=== PATIENT | male | born 1985 | race Caucasian/White ===

== ENCOUNTER 2017-06-23 15:29 | Inpatient (IN) | payer OTHER ==
[2017-06-23 16:50] VITALS: BMI 29.2
--- NOTE | 2017-06-23 20:42 | HP ---
COWS - Scale Resting Pulse: 1= [place] 81-100 Sweatin=Flushed/Facial Moisture Restless Observation: 3= Extraneous Movement Pupil Size: 0= Normal to Room Light Bone or Joint Aches: 2= Severe Diffuse Aches Runny Nose/ Eye Tearin= Runny Nose/Eyes GI Upset > 30mins: 1= Stomach Cramp Tremor Observation: 2= Slight Tremor Visible Yawning Observation: 1= 1-2x During Session Anxiety or Irritability: 4=Extreme Anxiety Goose Flesh Skin: 0=Smooth Skin COWS Score: 18 Admission ROS S - HPI Chief Complaint: Opiod withdrawal sx Allergies/Adverse Reactions: Allergies Allergy/AdvReac Type Severity Reaction Status Date / Time Fish Containing Products Allergy Severe Swelling Verified 06/23/17 21:46 No Known Drug Allergies Allergy Verified 06/23/17 21:46 NKDA Allergy Uncoded 06/23/17 21:46 History of Present Illness: 31 years old male with hx of opioid dependence is admitted for detox. Patient has been in previous detox and reports opoid withdrawal sx at this time and 18 months sobriety Exam Limitations: No Limitations - Ebola screening Have you traveled outside of the country in the last 21 days: No Have you had contact with anyone from an Ebola affected area: No Have you been sick,other than usual withdrawal symptoms: No Do you have a fever: No - Review of Systems Constitutional: Chills, Night Sweats, Changes in sleep EENT: reports: No Symptoms Reported Respiratory: reports: No Symptoms reported Cardiac: reports: No Symptoms Reported GI: reports: No Symptoms Reported : reports: No Symptoms Reported Musculoskeletal: reports: Muscle Pain, Muscle Weakness Integumentary: reports: Flushing, Sweating Neuro: reports: Headache, Tingling, Tremors Endocrine: reports: Flushing Hematology: reports: No Symptoms Reported Psychiatric: reports: Orientated x3, Anxious Other Systems: Reviewed and Negative Patient History - Patient Medical History Hx Anemia: No Hx Asthma: No Hx Chronic Obstructive Pulmonary Disease (COPD): No Hx Cancer: No Hx Cardiac Disorders: No Hx Congestive Heart Failure: No Hx Hypertension: No Hx Hypercholesterolemia: No Hx Pacemaker: No HX Cerebrovascular Accident: No Hx Seizures: No Hx Dementia: No Hx Diabetes: No Hx Gastrointestinal Disorders: No Hx Liver Disease: No Hx Genitourinary Disorders: No Hx Sexually Transmitted Disorders: No Hx Renal Disease (ESRD): No Hx Thyroid Disease: No Hx Human Immunodeficiency Virus (HIV): No (Negative March 2017) Hx Hepatitis C: No Hx Depression: No Hx Suicide Attempt: No Hx Bipolar Disorder: No Hx Schizophrenia: No - Patient Surgical History Past Surgical History: No Hx Neurologic Surgery: No Hx Cataract Extraction: No Hx Cardiac Surgery: No Hx Lung Surgery: No Hx Breast Surgery: No Hx Breast Biopsy: No Hx Abdominal Surgery: No Hx Appendectomy: No Hx Cholecystectomy: No Hx Genitourinary Surgery: No Hx Section: No Hx Orthopedic Surgery: No Anesthesia Reaction: No - PPD History Previous Implant?: Yes Documented Results: Negative w/proof Implanted On Prior [facility] Admission?: Yes Date: 11/08/16 Results: 0mm PPD to be Administered?: No - Reproductive History Patient is a Female of Child Bearing Age (11 -55 yrs old): No (Male) - Smoking Cessation Smoking history: Current every day smoker Have you smoked in the past 12 months: Yes Aproximately how many cigarettes per day: 20 Cigars Per Day: 0 Hx Chewing Tobacco Use: No Initiated information on smoking cessation: Yes 'Breaking Loose' booklet given: 06/23/17 - Substance & Tx. History Hx Alcohol Use: No Hx Substance Use: Yes (Heroin, Klonopin) Substance Use Type: Heroin Hx Substance Use Treatment: Yes ([facility] detox 10/2016) - Substances Abused Heroin Route: Injection Frequency: Daily Amount used: 8 bags Age of first use: 28 Date of Last Use: 06/22/17 Benzodiazepine (Klonopin) Route: Oral Frequency: 3-6 times per week Amount used: 4mg Age of first use: 28 Date of Last Use: 06/22/17 Alprazolam (Xanax) Frequency: 3-6 times per week Age of first use: 28 Date of Last Use: 06/22/17 Family Disease History - Family Disease History Family History: Denies Admission Physical Exam S - Vital Signs Vital Signs: Vital Signs - 24 hr 06/23/17 16:48 Temperature 97.7 F Pulse Rate 82 Respiratory 16 Rate Blood Pressure 116/71 - Physical General Appearance: Yes: Moderate Distress, Tremorous, Irritable, Sweating, Anxious HEENTM: Yes: EOMI, Normal Voice, ANDREINA Respiratory: Yes: Lungs Clear, Normal Breath Sounds, No Respiratory Distress Neck: Yes: Supple Breast: Yes: Breast Exam Deferred Cardiology: Yes: Regular Rhythm, Regular Rate, S1, S2 Abdominal: Yes: Normal Bowel Sounds, Flat Genitourinary: Yes: Within Normal Limits Back: Yes: Within Normal Limits Musculoskeletal: Yes: Muscle Pain, Muscle weakness Extremities: Yes: Normal Inspection Neurological: Yes: Fully Oriented, Alert, Normal Response Integumentary: Yes: Track Bucio (Both hands), Other (9 tatoos both hands) Lymphatic: Yes: Within Normal Limits - Diagnostic (1) Nicotine dependence Current Visit: Yes Status: Chronic Qualifiers: Nicotine product type: cigarettes Substance use status: in withdrawal Qualified Code(s): F17.213 - Nicotine dependence, cigarettes, with withdrawal; F17.213 - Nicotine dependence, cigarettes, with withdrawal (2) Opioid dependence with withdrawal Current Visit: Yes Status: Chronic (3) Sedative, hypnotic or anxiolytic dependence with withdrawal, uncomplicated Current Visit: Yes Status: Chronic Cleared for Admission [facility] - Detox or Rehab [facility] Level of Care: Medically Managed Detox Regimen/Protocol: Methadone/Valium [facility] Breath Alcohol Content Breath Alcohol Content: 0 Urine Drug Screen - Results Drug Screen Negative: No Urine Drug Screen Results: THC-Marijuana, OPI-Opiates, MET-Methamphetamine, BZO- Benzodiazepines, OXY-Oxycodone
[2017-06-23] MEDS ORDERED: MAGNESIUM CITRATE 300 ML BOTTLE PO PRN (21:11)
[2017-06-23] MEDS ORDERED: LOPERAMIDE HCL 2 MG CAPSULE PO PRN (21:11)
[2017-06-23] MEDS ORDERED: IBUPROFEN 400 MG TABLET (FP) PO PRN (21:11)
[2017-06-23] MEDS ORDERED: diphenhydrAMINE HCL 50 MG CAPSULE PO PRN (21:11)
[2017-06-23] MEDS ORDERED: hydrOXYzine PAMOATE 50 MG CAPSULE (FP) PO PRN (21:11)
[2017-06-23] MEDS ORDERED: guaiFENesin/D-METHORPHAN HB 10 ML UNIT-DOSE CUPS PO PRN (21:11)
[2017-06-23] MEDS ORDERED: METHADONE HCL 10 MG TABLET (FOR DETOX USE ONLY) PO ONE ×2 (21:11→23:00)
[2017-06-23] MEDS ORDERED: diazePAM 5 MG TABLET PO PRN (21:11)
[2017-06-23] MEDS ORDERED: MAGNESIUM HYDROX 2400MG/30ML ORAL SUSPENSION 30 ML CUP PO PRN (21:11)
[2017-06-23] MEDS ORDERED: ACETAMINOPHEN 325 MG TABLET (FP) PO PRN (21:11)
[2017-06-23] MEDS ORDERED: diazePAM 5 MG TABLET PO ONE (21:11)
[2017-06-23] MEDS ORDERED: MAG HYDROX/AL HYDROX/SIMETH 30 ML UNIT-DOSE CUP PO PRN (21:11)
[2017-06-23] MEDS ORDERED: MENTHOL/PHENOL 1 EACH UD MM PRN (21:11)
[2017-06-23] MEDS ORDERED: P-EPHED 60MG/TRIPROLIDI 2.5MG TABLET PO PRN (21:11)
[2017-06-23] MEDS ORDERED: NICOTINE POLACRILEX 2 MG GUM BUC PRN (21:11)
[2017-06-23] MEDS ORDERED: THIAMINE HCL 100 MG TABLET (FP) PO SCH (22:00)
[2017-06-23] MEDS: diazePAM 5 MG TABLET PO SCH (22:41)
[2017-06-24] MEDS: diazePAM 5 MG TABLET PO SCH (06:13)
[2017-06-24 09:45] VITALS: BP 126/84; PULSE 82; TEMP 98
[2017-06-24 09:52] LABS: MCH 26.8 pg (25.7-33.7); MCHC 32.8 g/dl (32.0-35.9); MEAN CELL VOLUME 81.6 fl (80-96); MEAN PLT VOLUME 9.4 fl (7.5-11.1); PLATELET COUNT 204 K/MM3 (134-434); WHITE BLOOD COUNT 6.2 K/mm3 (4.0-10.0)
[2017-06-24] MEDS ORDERED: NICOTINE 14 MG/24 HOURS TOPICAL PATCH TD SCH (10:00)
[2017-06-24] MEDS ORDERED: METHADONE HCL 10 MG TABLET (FOR DETOX USE ONLY) PO SCH (10:00)
[2017-06-24] MEDS ORDERED: PRENATAL VITAMINS W/ FOLIC ACID TABLET (FP) PO SCH (10:00)
[2017-06-24 10:42] LABS: ALBUMIN 3.6 g/dl (3.4-5.0); ALK PHOS 132 U/L (45-117); ANION GAP 8 (8-16); BILIRUBIN,TOTAL 0.5 mg/dL (0.2-1.0); CALCIUM 9.1 mg/dL (8.5-10.1); CO2 28 mmol/L (21-32); CREATININE 0.8 mg/dL (0.7-1.3); GLUCOSE,RANDOM 102 mg/dL (74-106); SGOT/AST 17 U/L (15-37); SGPT/ALT 30 U/L (12-78); TOT PROT 7.5 g/dl (6.4-8.2)
--- NOTE | 2017-06-24 11:53 | DS ---
[facility] Detox Discharge Summary Admission Date: 06/23/17 Discharge Date: 06/24/17 - History Present History: Opioid Dependence, Sedative Dependence Additional Comments: PATIENT DOES NOT WISH TO STAY TO COMPLETE DETOX REGIMEN. RISKS OF LEAVING DETOX UNIT PRIOR TO COMPLETION OF DETOX REGIMEN DISCUSSED WITH PATIENT. PATIENT ADVISED TO GO IMMEDIATELY TO NEAREST ER SHOULD ANY INTOLERABLE DETOX SYMPTOMS DEVELOP AT ANY TIME. PATIENT LEFT UNIT IN STABLE MEDICAL CONDITION. Pertinent Past History: Nicotine Dependence. - Physical Exam Results Vital Signs: Vital Signs Temperature 98.0 F 06/24/17 09:45 Pulse Rate 82 06/24/17 09:45 Respiratory Rate 16 06/24/17 09:45 Blood Pressure 126/84 06/24/17 09:45 O2 Sat by Pulse Oximetry (%) Pertinent Admission Physical Exam Findings: WITHDRAWAL SYMPTOMS. Laboratory Tests 06/24/17 06/24/17 06/24/17 07:00 07:00 07:00 WBC 6.2 RBC 4.55 Hgb 12.2 Hct 37.1 MCV 81.6 MCH 26.8 MCHC 32.8 RDW 15.0 Plt Count 204 MPV 9.4 Sodium 138 Potassium 4.1 Chloride 102 Carbon Dioxide 28 Anion Gap 8 BUN 12 Creatinine 0.8 Creat Clearance w eGFR > 60 Random Glucose 102 Calcium 9.1 Total Bilirubin 0.5 D AST 17 D ALT 30 Alkaline Phosphatase 132 H D Total Protein 7.5 Albumin 3.6 RPR Titer Nonreactive LABS NOTED. - Treatment Hospital Course: Detoxed Safely - Medication Discharge Medications: Ambulatory Orders NK [No Known Home Medication] 06/23/17 - Diagnosis (1) Nicotine dependence Status: Chronic Qualifiers: Nicotine product type: cigarettes Substance use status: in withdrawal Qualified Code(s): F17.213 - Nicotine dependence, cigarettes, with withdrawal; F17.213 - Nicotine dependence, cigarettes, with withdrawal (2) Opioid dependence with withdrawal Status: Acute (3) Sedative, hypnotic or anxiolytic dependence with withdrawal, uncomplicated Status: Acute - AMA Did Patient Leave Against Medical Advice: Yes (PATIENT DIOD NOT WISH TO STAY TO COMPLETE DETOX REGIMEN.)
--- NOTE | 2017-06-24 13:24 | EKG ---
Test Reason : Blood Pressure : / mmHG Vent. Rate : 084 BPM Atrial Rate : 084 BPM P-R Int : 154 ms QRS Dur : 080 ms QT Int : 374 ms P-R-T Axes : 019 056 027 degrees QTc Int : 441 ms NORMAL SINUS RHYTHM NORMAL ECG WHEN COMPARED WITH ECG OF 06-NOV-2016 18:53, NO SIGNIFICANT CHANGE WAS FOUND Confirmed by STEPAN KIM MD ([id number]) on 06/24/2017 1:23:27 PM Referred By: DAVID ESTEBAN Confirmed By:STEPAN KIM MD
[2017-06-25] MEDS ORDERED: diazePAM 5 MG TABLET PO SCH (10:00)
[2017-06-25] MEDS ORDERED: METHADONE HCL 5 MG TABLET (FOR DETOX USE ONLY) PO SCH (10:00)
[2017-06-27] MEDS ORDERED: diazePAM 5 MG TABLET PO SCH (10:00)
[2017-06-27] MEDS ORDERED: METHADONE HCL 10 MG TABLET (FOR DETOX USE ONLY) PO SCH (10:00)
[2017-06-28] MEDS ORDERED: METHADONE HCL 5 MG TABLET (FOR DETOX USE ONLY) PO SCH (06:00)
== END 2017-06-24 11:30 | disposition left against medical advice (07) | DRG 770 ==
LOC: YASAS 15:29 → Y3N 18:15
PROVIDERS: ADMIT Internal Medicine; ATTEND Internal Medicine
PROC: HZ2ZZZZ Detoxification Services for Substance Abuse Treatment (ICD-10-PCS; principal; 2017-06-23)
DX: F11.23 Opioid dependence with withdrawal (principal); F13.230 Sedative, hypnotic or anxiolytic dependence with withdrawal, uncomplicated; F17.213 Nicotine dependence, cigarettes, with withdrawal; Z91.013 Allergy to seafood
CPT/HCPCS: 36415; 80053; 85027; 86593; 93005; 93010

== ENCOUNTER 2017-07-30 15:34 | Inpatient (IN) | payer OTHER ==
[~2017-07-30 15:34] MED LIST: METHADONE HCL 10 MG TABLET (FOR DETOX USE ONLY) PO ONE
[2017-07-30 21:12] VITALS: BMI 26.9
[2017-07-30] MEDS ORDERED: METHADONE HCL 10 MG TABLET (FOR DETOX USE ONLY) PO ONE ×2 (23:00→23:38)
--- NOTE | 2017-07-30 23:22 | HP ---
<Ronna Duron - Last Filed: 07/31/17 02:52> COWS - Scale Resting Pulse: 1= [place] 81-100 Sweatin=Flushed/Facial Moisture Restless Observation: 3= Extraneous Movement Pupil Size: 1= Pupils >than Normal Bone or Joint Aches: 4=Acute Joint/Muscle Pain Runny Nose/ Eye Tearin= Runny Nose/Eyes GI Upset > 30mins: 1= Stomach Cramp (vomiting x) Tremor Observation: 2= Slight Tremor Visible Yawning Observation: 0= None Anxiety or Irritability: 2=Irritable/Anxious Goose Flesh Skin: 3=Piloerection COWS Score: 21 Admission [facility] Chief Complaint: Heroin withdrawal symptoms Allergies/Adverse Reactions: Allergies Allergy/AdvReac Type Severity Reaction Status Date / Time Fish Containing Products Allergy Severe Swelling Verified 06/23/17 21:46 No Known Drug Allergies Allergy Verified 06/23/17 21:46 seafood Allergy Intermediate Swelling Uncoded 07/30/17 22:03 History of Present Illness: 31 years old male with a long history of heroin, cocaine and marijuana dependence is admitted to detox. Patient reports previous detox and denies significant period of sobriety. He denies past medical history and suicidal ideation at this time. He is allergic to seafood. He states, "My goal is kick this bad habit this year." Exam Limitations: No Limitations - Ebola screening Have you traveled outside of the country in the last 21 days: No Have you had contact with anyone from an Ebola affected area: No Have you been sick,other than usual withdrawal symptoms: No Do you have a fever: No - Review of Systems Constitutional: Chills, Loss of Appetite, Night Sweats, Changes in sleep EENT: reports: No Symptoms Reported Respiratory: reports: No Symptoms reported Cardiac: reports: No Symptoms Reported GI: reports: Nausea, Poor Fluid Intake, Abdominal cramping : reports: No Symptoms Reported Musculoskeletal: reports: Muscle Pain, Muscle Weakness Integumentary: reports: Flushing Neuro: reports: Tingling, Tremors Endocrine: reports: No Symptoms Reported Hematology: reports: No Symptoms Reported Psychiatric: reports: Mood/Affect Appropiate, Orientated x3, Agitated, Anxious Other Systems: Reviewed and Negative Patient History - Patient Medical History Hx Anemia: No Hx Asthma: No Hx Chronic Obstructive Pulmonary Disease (COPD): No Hx Cancer: No Hx Cardiac Disorders: No Hx Congestive Heart Failure: No Hx Hypertension: No Hx Hypercholesterolemia: No Hx Pacemaker: No HX Cerebrovascular Accident: No Hx Seizures: No Hx Dementia: No Hx Diabetes: No Hx Gastrointestinal Disorders: No Hx Liver Disease: No Hx Genitourinary Disorders: No Hx Sexually Transmitted Disorders: No Hx Renal Disease (ESRD): No Hx Thyroid Disease: No Hx Human Immunodeficiency Virus (HIV): No (Negative March 2017) Hx Hepatitis C: No (Negative 2016) Hx Depression: No Hx Suicide Attempt: No (Denies suicidal ideation) Hx Bipolar Disorder: No Hx Schizophrenia: No - Patient Surgical History Past Surgical History: No Hx Neurologic Surgery: No Hx Cataract Extraction: No Hx Cardiac Surgery: No Hx Lung Surgery: No Hx Breast Surgery: No Hx Breast Biopsy: No Hx Abdominal Surgery: No Hx Appendectomy: No Hx Cholecystectomy: No Hx Genitourinary Surgery: No Hx Section: No Hx Orthopedic Surgery: No Anesthesia Reaction: No - PPD History Previous Implant?: Yes Documented Results: Negative w/proof Date: 11/08/16 Results: 0mm PPD to be Administered?: No - Reproductive History Patient is a Female of Child Bearing Age (11 -55 yrs old): No (Male) - Smoking Cessation Smoking history: Current every day smoker Have you smoked in the past 12 months: Yes Aproximately how many cigarettes per day: 20 Cigars Per Day: 0 Hx Chewing Tobacco Use: No Initiated information on smoking cessation: Yes 'Breaking Loose' booklet given: 07/30/17 - Substance & Tx. History Hx Alcohol Use: No Hx Substance Use: Yes Substance Use Type: Cocaine, Heroin, Marijuana, Opiates Hx Substance Use Treatment: Yes ([facility] 05/2017) - Substances Abused Heroin Route: Inhalation Frequency: Daily Amount used: 5 bags Age of first use: 28 Date of Last Use: 07/30/17 Alprazolam (Xanax) Route: Oral Frequency: Daily Amount used: 3 x 2mg Age of first use: 28 Date of Last Use: 07/30/17 Benzodiazepine (Klonopin) Route: Oral Frequency: Daily Amount used: 6mg Age of first use: 28 Date of Last Use: 07/30/17 Cocaine Route: Inhalation Frequency: 1-2 times per week Amount used: $20 Age of first use: 28 Date of Last Use: 07/29/17 Family Disease History - Family Disease History Family History: Denies Admission Physical Exam [facility] - Vital Signs Vital Signs: Vital Signs - 24 hr 07/30/17 21:05 Temperature 97 F L Pulse Rate 100 H Respiratory 18 Rate Blood Pressure 147/80 - Physical General Appearance: Yes: Moderate Distress, Tremorous, Irritable, Anxious HEENTM: Yes: Within Normal Limits Respiratory: Yes: Lungs Clear, Normal Breath Sounds, No Respiratory Distress Neck: Yes: Supple Breast: Yes: Breast Exam Deferred Cardiology: Yes: Regular Rhythm, S1, S2, Tachycardia Abdominal: Yes: Normal Bowel Sounds, Soft Genitourinary: Yes: Within Normal Limits Back: Yes: Within Normal Limits Musculoskeletal: Yes: Muscle Pain, Muscle weakness Extremities: Yes: Tremors, Other (tatoo to both hands) Neurological: Yes: Alert, Normal Mood/Affect, Normal Response Integumentary: Yes: Dry, Track Bucio (right hand) Lymphatic: Yes: Within Normal Limits - Diagnostic (1) Cannabis dependence, uncomplicated Current Visit: Yes Status: Chronic (2) Cocaine dependence Current Visit: Yes Status: Chronic QualifierTitle: Substance use status: uncomplicated Qualified Code(s): F14.20 - Cocaine dependence, uncomplicated (3) Opioid dependence with withdrawal Current Visit: Yes Status: Chronic (4) Sedative, hypnotic or anxiolytic dependence with withdrawal, uncomplicated Current Visit: Yes Status: Chronic (5) Nicotine dependence Current Visit: Yes Status: Chronic QualifierTitle: Nicotine product type: cigarettes Substance use status: in withdrawal Qualified Code(s): F17.213 - Nicotine dependence, cigarettes, with withdrawal Cleared for Admission [facility] - Detox or Rehab [facility] Level of Care: Medically Managed Detox Regimen/Protocol: Methadone/Valium [facility] Breath Alcohol Content Breath Alcohol Content: 0 Urine Drug Screen - Results Drug Screen Negative: No Urine Drug Screen Results: THC-Marijuana, MICHAEL-Cocaine, OPI-Opiates, BZO- Benzodiazepines <Jeff Carlton - Last Filed: 07/31/17 08:15> Admission Physical Exam [facility] - Vital Signs Vital Signs: Vital Signs - 24 hr 07/30/17 07/31/17 07/31/17 21:05 04:20 06:33 Temperature 97 F L 98.1 F Pulse Rate 100 H 90 Respiratory 18 18 20 Rate Blood Pressure 147/80 132/73 - Diagnostic (1) Dehydration Current Visit: Yes Status: Acute (2) Depression Current Visit: Yes Status: Acute
[2017-07-30] MEDS ORDERED: MENTHOL/PHENOL 1 EACH UD MM PRN (23:38)
[2017-07-30] MEDS ORDERED: guaiFENesin/D-METHORPHAN HB 10 ML UNIT-DOSE CUPS PO PRN (23:38)
[2017-07-30] MEDS ORDERED: hydrOXYzine PAMOATE 50 MG CAPSULE (FP) PO PRN (23:38)
[2017-07-30] MEDS ORDERED: ACETAMINOPHEN 325 MG TABLET (FP) PO PRN (23:38)
[2017-07-30] MEDS ORDERED: NICOTINE POLACRILEX 2 MG GUM BC PRN (23:38)
[2017-07-30] MEDS ORDERED: MAGNESIUM CITRATE 300 ML BOTTLE PO PRN (23:38)
[2017-07-30] MEDS ORDERED: diazePAM 5 MG TABLET PO PRN (23:38)
[2017-07-30] MEDS ORDERED: MAGNESIUM HYDROX 2400MG/30ML ORAL SUSPENSION 30 ML CUP PO PRN (23:38)
[2017-07-30] MEDS ORDERED: diazePAM 5 MG TABLET PO ONE (23:38)
[2017-07-30] MEDS ORDERED: LOPERAMIDE HCL 2 MG CAPSULE PO PRN (23:38)
[2017-07-30] MEDS ORDERED: P-EPHED 60MG/TRIPROLIDI 2.5MG TABLET PO PRN (23:38)
[2017-07-30] MEDS ORDERED: MAG HYDROX/AL HYDROX/SIMETH 30 ML UNIT-DOSE CUP PO PRN (23:38)
[2017-07-30] MEDS ORDERED: IBUPROFEN 400 MG TABLET (FP) PO PRN (23:38)
[2017-07-31] MEDS ORDERED: chlordiazePOXIDE HCL 25 MG CAPSULE PO PRN ×2 (00:59→01:18)
[2017-07-31] MEDS ORDERED: METHADONE HCL 10 MG TABLET (FOR DETOX USE ONLY) PO ONE ×5 (01:18→23:00)
[2017-07-31] MEDS: METHADONE HCL 10 MG TABLET (FOR DETOX USE ONLY) PO ONE ×2 (01:19→01:49)
[2017-07-31] MEDS ORDERED: diazePAM 5 MG TABLET PO ONE (01:25)
[2017-07-31] MEDS: diazePAM 5 MG TABLET PO PRN ×2 (01:50→10:55)
[2017-07-31 02:40] LABS: URINE APPEARANCE SLCLOUDY; URINE BILIRUBIN NEGATIVE (NEGATIVE); URINE BLOOD NEGATIVE (NEGATIVE); URINE COLOR AMBER; URINE GLUCOSE (UA) NEGATIVE (NEGATIVE); URINE KETONE TRACE (NEGATIVE); URINE NITRITE NEGATIVE (NEGATIVE); URINE UROBILINOGEN NEGATIVE mg/dL (0.2-1.0)
[2017-07-31 02:51] LABS: URINE PROTEIN 1+ (NEGATIVE)
[2017-07-31 03:24] LABS: URINE MUCUS MODERATE; URINE RBC 1 /hpf (0-3); URINE WBC 1 /hpf (3-5)
[2017-07-31] MEDS: diazePAM 5 MG TABLET PO SCH ×3 (04:25→13:50)
[2017-07-31] MEDS ORDERED: chlordiazePOXIDE HCL 25 MG CAPSULE PO SCH ×2 (05:00)
[2017-07-31 09:51] LABS: MCH 26.9 pg (25.7-33.7); MCHC 32.8 g/dl (32.0-35.9); MEAN PLT VOLUME 9.2 fl (7.5-11.1); PLATELET COUNT 223 K/MM3 (134-434); RDW 16.1 % (11.9-15.9); WHITE BLOOD COUNT 7.6 K/mm3 (4.0-10.0)
[2017-07-31 10:00] LABS: ALBUMIN 3.7 g/dl (3.4-5.0); ANION GAP 6 (8-16); BILIRUBIN,TOTAL 0.8 mg/dL (0.2-1.0); CALCIUM 8.7 mg/dL (8.5-10.1); CO2 29 mmol/L (21-32); CREATININE 0.9 mg/dL (0.7-1.3); GLUCOSE,RANDOM 90 mg/dL (74-106); SGOT/AST 14 U/L (15-37); TOT PROT 7.3 g/dl (6.4-8.2)
[2017-07-31] MEDS ORDERED: NICOTINE 14 MG/24 HOURS TOPICAL PATCH TD SCH (10:00)
[2017-07-31] MEDS ORDERED: PRENATAL VITAMINS W/ FOLIC ACID TABLET (FP) PO SCH (10:00)
[2017-07-31] MEDS ORDERED: METHADONE HCL 10 MG TABLET (FOR DETOX USE ONLY) PO SCH (10:00)
--- NOTE | 2017-07-31 10:09 | EKG ---
Test Reason : Blood Pressure : / mmHG Vent. Rate : 107 BPM Atrial Rate : 107 BPM P-R Int : 136 ms QRS Dur : 078 ms QT Int : 336 ms P-R-T Axes : 014 046 043 degrees QTc Int : 448 ms SINUS TACHYCARDIA SEPTAL INFARCT , AGE UNDETERMINED ABNORMAL ECG WHEN COMPARED WITH ECG OF 23-JUN-2017 22:44, SEPTAL INFARCT IS NOW PRESENT Confirmed by MARGARITA GUERRA MD ([id number]) on 07/31/2017 10:08:58 AM Referred By: EULALIA HERNANDEZ Confirmed By:MARGARITA GUERRA MD
[2017-07-31 10:14] LABS: ALK PHOS 98 U/L (45-117); SGPT/ALT 20 U/L (12-78)
[2017-07-31 10:21] LABS: URINE LEUK ESTERASE Negative (NEGATIVE)
--- NOTE | 2017-07-31 10:46 | PN ---
[facility] CIWA - CIWA Score Nausea/Vomitin-Mild Nausea/No Vomiting Muscle Tremors: 3 Anxiety: 4-Mod. Anxious/Guarded Agitation: 3 Paroxysmal Sweats: 3 Orientation: 0-Oriented Tacttile Disturbances: 0-None Auditory Disturbances: 0-None Visual Disturbances: 0-None Headache: 0-None Present CIWA-Ar Total Score: 14 [facility] COWS - Scale Resting Pulse: 1= [place] 81-100 Sweatin=Flushed/Facial Moisture Restless Observation: 1= Difficult to Sit Still Pupil Size: 0= Normal to Room Light Bone or Joint Aches: 1= Mild Discomfort Runny Nose/ Eye Tearin= Runny Nose/Eyes GI Upset > 30mins: 2= Nausea/Diarrhea Tremor Observation of Outstretched Hands: 2= Slight Tremor Visible Yawning Observation: 1= 1-2x During Session Anxiety or Irritability: 2=Irritable/Anxious Goose Flesh Skin: 0=Smooth Skin COWS Score: 14 [facility] Progress Note (SOAP) Subjective: Anxiety,nausea,tremors,sweating,interrupted sleep,restless. Objective: 07/31/17 10:45 Vital Signs - 8 hr 07/31/17 07/31/17 07/31/17 04:20 06:33 09:56 Temperature 98.1 F 98.1 F Pulse Rate 90 90 Respiratory 18 20 19 Rate Blood Pressure 132/73 141/96 Laboratory Tests 07/31/17 07/31/17 07/31/17 00:38 07:00 07:00 WBC 7.6 RBC 4.11 Hgb 11.0 L Hct 33.7 L MCV 82.0 MCH 26.9 MCHC 32.8 RDW 16.1 H Plt Count 223 MPV 9.2 Sodium 139 Potassium 4.0 Chloride 104 Carbon Dioxide 29 Anion Gap 6 L BUN 12 Creatinine 0.9 Creat Clearance w eGFR > 60 Random Glucose 90 Calcium 8.7 Total Bilirubin 0.8 D AST 14 L ALT 20 D Alkaline Phosphatase 98 D Total Protein 7.3 Albumin 3.7 Urine Color Syeda Urine Appearance Slcloudy Urine pH 5.0 Ur Specific [place] 1.034 Urine Protein 1+ H Urine Glucose (UA) Negative Urine Ketones Trace H Urine Blood Negative Urine Nitrite Negative Urine Bilirubin Negative Urine Urobilinogen Negative Ur Leukocyte Esterase Negative Urine WBC (Auto) 1 Urine RBC (Auto) 1 Ur Epithelial Cells Rare Urine Mucus Moderate labs noted Assessment: 07/31/17 10:46 Withdrawal sx. Plan: Continue detox
[2017-07-31] MEDS ORDERED: METHADONE HCL 10 MG TABLET PO ONE (11:30)
[2017-07-31] MEDS ORDERED: METHADONE HCL 10 MG TABLET (FOR DETOX USE ONLY) ONE (11:31)
[2017-07-31 14:01] VITALS: BP 128/75; PULSE 100; TEMP 97.9
[2017-07-31 15:44] LABS: HIV 1 & 2 AB NEGATIVE; HIV 1 AGp24 NEGATIVE
--- NOTE | 2017-07-31 16:17 | PN ---
[facility] Progress Note Note: Pt. approached bedside by staff writer. Pt. denied to be seen by Psychiatric Nurse practitioner.
--- NOTE | 2017-07-31 18:12 | DS ---
[facility] Detox Discharge Summary Admission Date: 07/30/17 Discharge Date: 07/31/17 - History Present History: Cocaine Dependence, Opioid Dependence - Physical Exam Results Vital Signs: Vital Signs Temperature 97.9 F 07/31/17 14:00 Pulse Rate 100 H 07/31/17 14:00 Respiratory Rate 18 07/31/17 14:00 Blood Pressure 128/75 07/31/17 14:00 O2 Sat by Pulse Oximetry (%) - Medication Discharge Medications: Ambulatory Orders NK [No Known Home Medication] 06/23/17 - Diagnosis (1) Cannabis dependence, uncomplicated Current Visit: Yes Status: Chronic (2) Cocaine dependence Current Visit: Yes Status: Chronic Qualifiers: Substance use status: uncomplicated Qualified Code(s): F14.20 - Cocaine dependence, uncomplicated (3) Nicotine dependence Current Visit: Yes Status: Chronic Qualifiers: Nicotine product type: cigarettes Substance use status: in withdrawal Qualified Code(s): F17.213 - Nicotine dependence, cigarettes, with withdrawal (4) Opioid dependence with withdrawal Current Visit: Yes Status: Chronic (5) Sedative, hypnotic or anxiolytic dependence with withdrawal, uncomplicated Current Visit: Yes Status: Chronic - AMA Did Patient Leave Against Medical Advice: No (ADMINISTRATIVE DISCHARGE FOR NOT ADHERING TO UNIT RULES )
--- NOTE | 2017-07-31 18:12 | PN ---
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 WAS CAUGHT SMOKING IN THE BATHROOM. EARLIER DURING THE ENGINEERING OFFICER, HE WAS FOUND WITH A SOCK TIED TO HIS UPPER ARM, BLOOD ON HIS ARM AND A BROWN POWERED SUBSTANCE ON HIS TABLE. PER RN Ching CHAUDHARY, PT. WAS RE- EDUCATED ON THE REGULATIONS OF THE UNIT CONCERNING CONTRABAND AT THE TIME (SEE 07/31/17 NURSING NOTE). CLIENT ADMINISTRATIVELY DISCHARGED FOR NOT ADHERING TO UNIT RULES. MET WITH THE CLIENT IN THE SECURITY OFFICE. HE APPEARED TO BE IN STABLE CONDITION WITH NO SIGNS OF DISTRESS NOTED. HE WAS ADVISED TO SEEK OUTPATIENT THERAPY AND FOLLOW-UP WITH HIS PCP; PT. VERBALIZED UNDERSTANDING.
[2017-07-31] MEDS ORDERED: THIAMINE HCL 100 MG TABLET (FP) PO SCH (22:00)
[2017-08-01] MEDS ORDERED: chlordiazePOXIDE HCL 25 MG CAPSULE PO SCH ×2 (05:00)
[2017-08-01] MEDS ORDERED: METHADONE HCL 10 MG TABLET (FOR DETOX USE ONLY) PO SCH (10:00)
[2017-08-01] MEDS ORDERED: METHADONE HCL 5 MG TABLET (FOR DETOX USE ONLY) PO SCH ×3 (10:00)
[2017-08-01] MEDS ORDERED: diazePAM 5 MG TABLET PO SCH (10:00)
[2017-08-02] MEDS ORDERED: chlordiazePOXIDE 5 MG CAPSULE PO SCH ×2 (05:00)
[2017-08-02] MEDS ORDERED: METHADONE HCL 5 MG TABLET (FOR DETOX USE ONLY) PO SCH ×3 (10:00)
[2017-08-02] MEDS ORDERED: diazePAM 5 MG TABLET PO SCH (10:00)
[2017-08-03] MEDS ORDERED: chlordiazePOXIDE HCL 10 MG CAPSULE PO SCH ×2 (05:00)
[2017-08-03] MEDS ORDERED: METHADONE HCL 10 MG TABLET (FOR DETOX USE ONLY) PO SCH (10:00)
[2017-08-03] MEDS ORDERED: diazePAM 5 MG TABLET PO SCH (10:00)
[2017-08-04] MEDS ORDERED: METHADONE HCL 5 MG TABLET (FOR DETOX USE ONLY) PO SCH (06:00)
[2017-08-04] MEDS ORDERED: METHADONE HCL 10 MG TABLET (FOR DETOX USE ONLY) PO SCH ×3 (10:00)
[2017-08-04] MEDS ORDERED: diazePAM 5 MG TABLET PO SCH (10:00)
[2017-08-05] MEDS ORDERED: METHADONE HCL 10 MG TABLET (FOR DETOX USE ONLY) PO SCH ×2 (06:00)
[2017-08-05] MEDS ORDERED: METHADONE HCL 5 MG TABLET (FOR DETOX USE ONLY) PO SCH (06:00)
== END 2017-07-31 17:48 | disposition home or self-care (01) | DRG 773 ==
LOC: YASAS 15:34 → Y6N 22:34 → UNDOADMIN 22:34 → Y6N 22:36
PROVIDERS: ADMIT Internal Medicine; ATTEND Internal Medicine
PROC: HZ2ZZZZ Detoxification Services for Substance Abuse Treatment (ICD-10-PCS; principal; 2017-07-30)
DX: F11.23 Opioid dependence with withdrawal (principal); F13.230 Sedative, hypnotic or anxiolytic dependence with withdrawal, uncomplicated; F14.20 Cocaine dependence, uncomplicated; F12.20 Cannabis dependence, uncomplicated; F17.210 Nicotine dependence, cigarettes, uncomplicated
CPT/HCPCS: 36415; 80053; 81003; 81015; 85027; 86593; 87389; 93005; 93010